=== PATIENT | male | born 1970 | race Caucasian/White ===

== ENCOUNTER 2018-06-14 11:59 | Emergency (ER) | payer OTHER, MEDICAID, SELFPAY ==
[2018-06-14 12:00] VITALS: BP 127/82; PULSE 72; RESP 14; TEMP 36.2; O2SAT 97
[2018-06-14 13:06] LABS: Influenza A and B by PCR Rapid Negative (Negative)
--- NOTE | 2018-06-14 13:49 | ED_ITS ---
HPI - URI/Sore Throat General Chief Complaint: Upper Respiratory Symptoms Stated Complaint: STATES BRONCHITIS Time Seen by Provider: 06/14/18 13:47 Source: patient Mode of arrival: ambulatory Limitations: no limitations History of Present Illness HPI Narrative: Patient is a 47-year-old male here for evaluation of problems breathing and cough and fatigue and body aches for the past week. He states that he does have an albuterol inhaler at home which he had the last time he had the symptoms which was 6 months ago. He states that he has been using his albuterol without any improvement. Subjective fevers. Has a clear productive sputum. Related Data Previous Rx's Medication Instructions Recorded albuterol sulfate 1 puff INHALATION Q4-6H PRN #18 06/14/18 gram azithromycin See Label Instructions .ROUTE 06/14/18 .COMPLEX #6 tab Review of Systems Constitutional Denies fatigue and Denies fever(s) ENT Ears, Nose, Mouth, and Throat: Denies dizziness Cardiovascular Denies chest pain and Reports dyspnea Respiratory Reports change in phlegm color, Reports chest congestion, Reports cough, Reports excessive phlegm production, Reports dyspnea and Reports wheezing Gastrointestinal Gastrointestinal: Reports abdominal pain, Denies constipation, Denies diarrhea, Denies nausea and Denies vomiting Musculoskeletal Denies myalgias and Denies arthralgias Integumentary/Breasts Denies lesions and Denies rash Neurologic Denies dizziness Endocrine Denies fatigue Hematologic/Lymphatic Denies easy bleeding and Denies easy bruising Allergic/Immunologic Reports wheezing [facility] Medical History Healthy adult (Acute) Surgical History No pertinent past surgical history (Acute) Exam Initial Vital Signs Initial Vital Signs: Vital Signs Temperature 97.2 F L 06/14/18 12:00 Pulse Rate 72 06/14/18 12:00 Respiratory Rate 14 06/14/18 12:00 Blood Pressure 127/82 06/14/18 12:00 Pulse Oximetry 97 06/14/18 12:00 Const General: cooperative, healthy appearing, comfortable, well developed, well groomed and No acute distress Orientation: alert, awake and oriented x3 HENMT Head: normal to inspection and normocephalic Resp Effort & Inspection: normal respiratory effort, not labored, no respiratory distress and not tachypneic Auscultation: crackles, rhonchi and wheezes Cardio Rate: regular rate Rhythm: regular rhythm GI Inspection: non-distended Palpation: soft, No firm and No tender Skin Lesions: no lesions Rashes: no rashes Neuro General: alert, awake and oriented x3 Extrem General: normal to inspection and capillary refill normal Course Orders Ordered: ED Orders 06/14/18 12:30 FLU A and B [Influenza A and B by PCR Rapid] Stat 06/14/18 14:00 RT Consult Eval and Treat Now Discontinued Medications Albuterol (Ventolin) 2.5 mg INH NOW ONE Stop: 06/14/18 14:24 Last Admin: 06/14/18 14:20 Dose: 2.5 mg Albuterol/Ipratropium (Duoneb) 3 ml INH NOW ONE Stop: 06/14/18 14:00 Last Admin: 06/14/18 14:10 Dose: 3 ml Dexamethasone (Decadron) 10 mg PO NOW ONE Stop: 06/14/18 14:00 Last Admin: 06/14/18 14:22 Dose: 10 mg Vital Signs - 8 hr 06/14/18 12:00 06/14/18 14:44 Temperature 97.2 F L Pulse Rate 72 80 Respiratory Rate 14 17 Blood Pressure 127/82 Blood Pressure [Left Arm] 130/84 Pulse Oximetry 97 98 MDM - URI/Sore Throat Lab Data Lab Results 06/14/18 Range/Units 12:30 Influenza A & B (PCR) Negative (Negative) MDM Narrative Medical decision making narrative: Patient with diffuse bilateral wheezes and rhonchi. He did received 2 DuoNeb here in the emergency department which did improve his symptoms. He was also given oral Decadron here. Given his subjective fevers, body aches, productive cough and his abnormal breath sounds I will treat as a pneumonia. Will hold on chest x-ray. I will do this off of clinical findings. Also refill the patient's albuterol inhaler. He was given return precautions. He expressed understanding and agreement with plan. Discharge Plan Departure Patient Disposition: Home Clinical Impression: Pneumonia Instructions: DI for Pneumonia -- Adult Activity Restrictions/Additional Instructions: Increase your fluid intake. I would recommend that every 4 hr for the next 24 hr while your awake you use the albuterol inhaler with the AeroChamber. Return to the emergency department for any new or worsening symptoms. Call your primary doctor for a follow-up. Prescriptions: New azithromycin 250 mg tablet See Label Instructions .ROUTE .COMPLEX Qty: 6 RF: 0 albuterol sulfate 90 mcg/actuation HFA aerosol inhaler 1 puff INHALATION Q4-6H PRN (Reason: shortness of breath or wheezing) Qty: 18 RF: 0
[2018-06-14] MEDS: ALBUTEROL/IPRATROPIUM 3 ML AMPUL INH (14:10)
[2018-06-14] MEDS: ALBUTEROL 2.5 MG/3 ML NEB (ADULT) INH (14:20)
[2018-06-14] MEDS: DEXAMETHASONE 10 MG/ML VIAL PO (14:22)
[2018-06-14 14:44] VITALS: BP 130/84; PULSE 80; RESP 17; O2SAT 98
[2018-06-14 15:22] VITALS: BP 143/76; PULSE 89; RESP 19; TEMP 36.8; O2SAT 94
== END 2018-06-14 15:24 | disposition home or self-care (01) ==
PROVIDERS: Emergency Provider Emergency Medicine
DX: J18.9 Pneumonia, unspecified organism (principal)
CPT/HCPCS: 87400; 94640; 99282; 99283; J1100; J7613

== ENCOUNTER 2018-07-01 19:26 | Emergency (ER) | payer OTHER, MEDICAID, SELFPAY ==
[2018-07-01 19:36] VITALS: BP 136/74; PULSE 83; RESP 25; TEMP 36.4; O2SAT 97
[2018-07-01 19:38] VITALS: O2SAT 97
--- NOTE | 2018-07-01 19:40 | ED_ITS ---
HPI - SOB/Dyspnea General Chief Complaint: Shortness of Breath/Dyspnea Stated Complaint: STATES HAS PNEUMONIA Time Seen by Provider: 07/01/18 19:40 Source: patient Mode of arrival: ambulatory Limitations: no limitations History of Present Illness The patient has been ill for 3 weeks. He describes cough, dyspnea and fatigue. He has had no fever or chills. He does feel weak. He has been seen on multiple occasions. He was initially treated with Zithromax, he is now on Levaquin. He has been on a course of prednisone. He is currently taking albuterol. Despite these efforts for multiple vitals, he presents with shortness of breath, wheezing, mild left-sided chest pain, but no fever. The cough is generally nonproductive. Was a cigarette smoker, less than 1/2 pack per day. He still chews tobacco. He quit smoking in association with his current illness. He has a history of childhood asthma. The asthma resolved at a young age. He has not had to deal with asthma as an adult. He has no leg pain, he has no hemoptysis. He has no orthopnea. He has no known cardiac history. Related Data Previous Rx's Medication Instructions Recorded albuterol sulfate 1 puff INHALATION Q4-6H PRN #18 06/14/18 gram azithromycin See Label Instructions .ROUTE 06/14/18 .COMPLEX #6 tab albuterol sulfate 2 inhalation INHALATION Q4H PRN #1 07/01/18 each prednisone 60 mg PO DAILY 5 Days #15 tab 07/01/18 Allergies Allergy/AdvReac Type Severity Reaction Status Date / Time No Known Drug Allergies Allergy Verified 07/01/18 19:36 Review of Systems Review of Systems All systems reviewed & are unremarkable except as noted in HPI and below Constitutional Denies chills, Denies fever(s), Denies headache(s), Reports lethargy and Reports weakness Eyes Denies change in vision, Denies eye discharge and Denies irritation ENT Ears, Nose, Mouth, and Throat: Denies change in voice, Denies dizziness, Denies headache(s), Denies neck pain and Denies sore throat Cardiovascular Reports chest pain (Left upper chest discomfort), Denies irregular heart rhythm , Denies lightheadedness, Denies palpitations, Reports dyspnea, Reports dyspnea on exertion and Denies orthopnea Respiratory Denies change in phlegm color, Denies excessive phlegm production, Reports pain with cough, Reports dyspnea, Reports dyspnea on exertion, Denies stridor and Reports wheezing Gastrointestinal Gastrointestinal: Denies abdominal pain, Denies change in bowel habits, Denies diarrhea, Denies nausea and Denies vomiting Genitourinary Denies dysuria Musculoskeletal Denies back pain, Denies myalgias and Denies neck pain Integumentary/Breasts Denies erythema and Denies rash Neurologic Denies confusion, Denies dizziness, Denies headache(s) and Reports weakness Psychiatric Denies confusion Endocrine Denies palpitations Hematologic/Lymphatic Denies easy bruising Allergic/Immunologic Reports wheezing [facility] Medical History Healthy adult (Acute) Surgical History No pertinent past surgical history (Acute) Social History Smoking Status: Former smoker Smokeless tobacco user: chewing tobacco Exam Initial Vital Signs Initial Vital Signs: Vital Signs Temperature 97.5 F L 07/01/18 19:36 Pulse Rate 83 07/01/18 19:36 Respiratory Rate 25 H 07/01/18 19:36 Blood Pressure 136/74 07/01/18 19:36 Pulse Oximetry 97 07/01/18 19:36 Const General: cooperative, healthy appearing and well developed Nutritional Appearance: well nourished Orientation: alert, awake, oriented x3 and not confused [facility] Head: normocephalic and atraumatic Ears: external ears normal and TM's normal bilaterally Face and sinus: sinuses nontender, face symmetric and no sinus tenderness Mouth: oral mucosae normal and moist mucous membranes Throat: posterior oropharynx normal Eyes General: appearance normal, both eyes and all related structures Eyelids: eyelids normal Conjunctivae: conjunctivae normal Sclera: sclerae normal Pupils: PERRL EOM: EOM intact bilaterally Neck Neck: full ROM and No JVD Chest Chest: normal inspection of the chest and No tenderness Resp Effort & Inspection: normal respiratory effort, able to speak in complete sentences, no stridor and not tachypneic Auscultation: no rales, rhonchi right lower and wheezes scattered wheezes Cardio Rate: regular rate Rhythm: regular rhythm Heart Sounds: no click, no gallops, no murmurs and no rubs Pulses: normal peripheral pulses GI Inspection: non-distended Palpation: soft, no hepatosplenomegaly, No guarding, No pulsatile mass and No tender Auscultation: normal bowel sounds Back/Spine/Pelvis Back: No CVA tenderness Skin General: no rashes or lesions noted Neuro General: alert, oriented x3, gait normal and no focal motor deficits Speech: speech normal Extrem General: full ROM, no clubbing, cyanosis or edema, no pedal edema and no calf tenderness Psych Appearance: well kempt Mental Status: mental status grossly normal Attitude: cooperative Thought Content: normal and suicidality Judgment: judgment good Course Orders Ordered: ED Orders 07/01/18 19:53 Consult to Respiratory Therapy Evaluate & Treat EKG-12 Lead Stat 07/01/18 19:54 XR chest 2V Stat 07/01/18 20:25 B Type Natriuretic Peptide Stat Basic Metabolic Panel Stat Complete Blood Count AUTO DIFF Stat D Dimer Stat Lactate (Lactic Acid) Stat Magnesium Stat Troponin & CK Cardiac Panel Stat 07/01/18 20:45 Blood Culture Stat Discontinued Medications Albuterol (Ventolin) 5 mg INH NOW ONE Stop: 07/01/18 19:54 Last Admin: 07/01/18 19:57 Dose: 5 mg Albuterol (Ventolin) 2.5 mg INH NOW ONE Stop: 07/01/18 21:15 Last Admin: 07/01/18 21:27 Dose: 2.5 mg Albuterol/Ipratropium (Duoneb) 3 ml INH NOW ONE Stop: 07/01/18 19:50 Last Admin: 07/01/18 19:52 Dose: 3 ml Albuterol/Ipratropium (Duoneb) 3 ml INH NOW ONE Stop: 07/01/18 19:53 Albuterol/Ipratropium (Duoneb) 3 ml INH NOW ONE Stop: 07/01/18 19:54 Methylprednisolone (Solu-Medrol 125 Mg Vial) 125 mg IV NOW ONE Stop: 07/01/18 19:53 Last Admin: 07/01/18 20:35 Dose: 125 mg Methylprednisolone (Solu-Medrol 125 Mg Vial) 125 mg IV NOW ONE Stop: 07/01/18 19:54 Last Admin: 07/01/18 20:14 Dose: Not Given Vital Signs - 8 hr 07/01/18 19:36 07/01/18 19:38 07/01/18 19:55 Temperature 97.5 F L Pulse Rate 83 Respiratory Rate 25 H Blood Pressure 136/74 Pulse Oximetry 97 97 100 07/01/18 21:27 07/01/18 21:40 Temperature Pulse Rate 87 85 Respiratory Rate 16 Blood Pressure Pulse Oximetry 97 100 MDM - SOB/Dyspnea Differential Diagnosis Likely acute exacerbation of chronic obstructive airways disease, congestive heart failure, community acquired pneumonia, asthma with exacerbation, pulmonary embolism and other ([place]) Medical Records Attestation: I reviewed the patient's medical records. Lab Data Attestation: I reviewed the patient's lab results. Result diagrams: 07/01/18 20:25 07/01/18 20:25 Lab Results 07/01/18 07/01/18 07/01/18 Range/Units 20:25 20:25 20:25 WBC 8.6 (4.5-11.0) X10^3/uL RBC 5.07 (4.5-5.9) X10^6/uL Hgb 15.1 (13.5-17.5) g/dL Hct 45.1 (41-53) % MCV 88.9 (80-100) fL MCH 29.8 (26-34) PG MCHC 33.5 (30-36) % RDW 13.3 (11.6-14.8) % Plt Count 204 (150-400) X10^3/uL Neut % (Auto) 40.6 L (50-75) % Lymph % (Auto) 45.9 H (25-40) % [place] % (Auto) 7.8 (3-14) % Eos % (Auto) 5.0 H (2-4) % Baso % (Auto) 0.7 (0-2) % Neut # (Auto) 3500 (6870-0446) /uL D-Dimer < 200 (<230) ng/mL Sodium 140 (137-145) mmol/L Potassium 3.7 (3.4-5.1) mmol/L Chloride 107 (98-107) mmol/L Carbon Dioxide 21 L (22-32) mmol/L BUN 15 (9-20) mg/dL Creatinine 0.90 (0.66-1.25) mg/dL Estimated GFR > 60.0 (>60) mL/min BUN/Creatinine Ratio 16.7 (6-22) Glucose 151 H (70-100) mg/dL Lactate (0.7-2.1) mmol/L Calcium 8.6 (8.4-10.2) mg/dL Magnesium 1.9 (1.6-2.3) mg/dL Total Creatine Kinase 293 H (55-170) U/L CK-MB (CK-2) 3.67 H (<2.37) ng/mL CK-MB (CK-2) Rel Index 1.3 L (1.5-5.0) % Troponin I < 0.012 (0.01-0.034) ng/mL B-Natriuretic Peptide < 29.4 (<100) 07/01/18 Range/Units 20:25 WBC (4.5-11.0) X10^3/uL RBC (4.5-5.9) X10^6/uL Hgb (13.5-17.5) g/dL Hct (41-53) % MCV (80-100) fL MCH (26-34) PG MCHC (30-36) % RDW (11.6-14.8) % Plt Count (150-400) X10^3/uL Neut % (Auto) (50-75) % Lymph % (Auto) (25-40) % [place] % (Auto) (3-14) % Eos % (Auto) (2-4) % Baso % (Auto) (0-2) % Neut # (Auto) (6008-0590) /uL D-Dimer (<230) ng/mL Sodium (137-145) mmol/L Potassium (3.4-5.1) mmol/L Chloride (98-107) mmol/L Carbon Dioxide (22-32) mmol/L BUN (9-20) mg/dL Creatinine (0.66-1.25) mg/dL Estimated GFR (>60) mL/min BUN/Creatinine Ratio (6-22) Glucose (70-100) mg/dL Lactate 2.1 (0.7-2.1) mmol/L Calcium (8.4-10.2) mg/dL Magnesium (1.6-2.3) mg/dL Total Creatine Kinase (55-170) U/L CK-MB (CK-2) (<2.37) ng/mL CK-MB (CK-2) Rel Index (1.5-5.0) % Troponin I (0.01-0.034) ng/mL B-Natriuretic Peptide (<100) Imaging Data Chest x-ray: Radiologist's impression: Normal ECG Data Attestation: I personally reviewed and interpreted this ECG as follows: MDM Narrative Medical decision making narrative: The patient presented with diffuse wheezing. He improved with the neb treatments and IV steroids. He continues to have right lower lobe bronchi. Chest XR is clear. He has been on Zithromax and is currently on Levaquin. It is possible that he has resolving pneumonia or partially treated pneumonia. He needs to continue the antibiotics. He does have a history of asthma as a child, he had significant wheezing upon arrival. I have put him back on steroids. I recommended follow up with his PCM with consideration of a steroid inhaler and formal pulmonary testing. Discharge Plan Departure Patient Disposition: Home Clinical Impression: Bronchitis with asthma, acute Discharge Date/Time: 07/01/18 22:22 Interventions: ED Discharge Assessment Last Done: 07/01/18 22:23 Instructions: Asthma -- Adult Activity Restrictions/Additional Instructions: Your lung exam is suggestive of asthma or COPD. There is no evidence of heart attack, congestive heart failure, or blood clots in your lungs.The chest x-ray does not reveal a significant pneumonia or other abnormality. I do think you do have infection, thus you should continue the antibiotics. Finish the antibiotic, Levaquin. Continue taking Albuterol, 2 puffs every 4 hr as needed. Prednisone 60 mg daily for 5 days. Follow-up with Dr. Magallanes next week. Your currently on oral steroids, discuss possibly going on a steroid inhaler with Dr. Magallanes. I would also recommend consideration of a pulmonology consult. Pulmonary function test would be useful , bronchoscopy may be useful if symptoms persist. Prescriptions: New prednisone 20 mg tablet 60 mg PO DAILY 5 Days Qty: 15 RF: 0 albuterol sulfate 90 mcg/actuation aerosol powdr breath activated 2 inhalation INHALATION Q4H PRN (Reason: shortness of breath or wheezing) Qty : 1 RF: 1 No Action azithromycin 250 mg tablet See Label Instructions .ROUTE .COMPLEX Qty: 6 RF: 0 albuterol sulfate 90 mcg/actuation HFA aerosol inhaler 1 puff INHALATION Q4-6H PRN (Reason: shortness of breath or wheezing) Qty: 18 RF: 0
[2018-07-01] MEDS: ALBUTEROL/IPRATROPIUM 3 ML AMPUL INH (19:52)
--- NOTE | 2018-07-01 19:54 | DI.RAD.S_ITS ---
PROCEDURE: XR CHEST 2V INDICATIONS: Cough. Wheezing TECHNIQUE: 2 views of the chest were acquired. COMPARISON: None. FINDINGS: Surgical changes and devices: None. Lungs and pleura: No pleural effusions or pneumothorax. Lungs are clear. Mediastinum: Mediastinal contours are normal. Heart size is normal. Bones and chest wall: No suspicious bony abnormalities. Soft tissues appear unremarkable. Contour irregularity consistent with an old healed fracture identified along the posterolateral aspect of the right seventh rib. There are mild multilevel degenerative changes of the thoracic spine. IMPRESSION: No acute cardiopulmonary disease. Dictated by: Dipesh Hinton M.D. on 07/01/2018 at 20:43 Approved by: Dipesh Hinton M.D. on 07/01/2018 at 20:45
[2018-07-01 19:55] VITALS: O2SAT 100
[2018-07-01] MEDS: ALBUTEROL 2.5 MG/3 ML NEB (ADULT) 5 MG INH (19:57)
[2018-07-01] MEDS: methylPREDNISolone 125 MG/2 ML VIAL IV (20:35)
[2018-07-01 20:38] LABS: Add Manual Diff / Slide Review NO; Basophils Percent Auto 0.7 % (0-2); Hematocrit 45.1 % (41-53); Hemoglobin 15.1 g/dL (13.5-17.5); Lymphocytes Percent Auto 45.9 % (25-40); Mean Corpuscular HGB Conc 33.5 % (30-36); Mean Corpuscular Hemoglobin 29.8 PG (26-34); Mean Corpuscular Volume 88.9 fL (80-100); Monocytes Percent Auto 7.8 % (3-14); Neutrophils Absolute Auto 3500 /uL (3000-5900); Neutrophils Percent Auto 40.6 % (50-75); Platelet Count 204 X10^3/uL (150-400); Red Blood Cell Count 5.07 X10^6/uL (4.5-5.9); Red Cell Distribution Width 13.3 % (11.6-14.8); White Blood Cell Count 8.6 X10^3/uL (4.5-11.0)
[2018-07-01 21:02] LABS: B Type Natriuretic Peptide < 29.4 (<100)
[2018-07-01 21:03] LABS: D Dimer < 200 ng/mL (<230)
[2018-07-01 21:04] LABS: BUN Creatinine Ratio 16.7 (6-22); Blood Urea Nitrogen 15 mg/dL (9-20); Calcium 8.6 mg/dL (8.4-10.2); Carbon Dioxide 21 mmol/L (22-32); Chloride 107 mmol/L (98-107); Creatine Kinase 293 U/L (55-170); Estimated Glomerular Filt Rate > 60.0 mL/min (>60); Glucose 151 mg/dL (70-100); HEMOLYSIS 22 (0-50); Lactate (Lactic Acid) 2.1 mmol/L (0.7-2.1); Magnesium 1.9 mg/dL (1.6-2.3); Potassium 3.7 mmol/L (3.4-5.1); Sodium 140 mmol/L (137-145)
[2018-07-01 21:18] LABS: CKMB % Relative Index 1.3 % (1.5-5.0); Creatine Kinase MB 3.67 ng/mL (<2.37); Troponin I < 0.012 ng/mL (0.01-0.034)
[2018-07-01 21:27] VITALS: PULSE 87; RESP 16; O2SAT 97
[2018-07-01] MEDS: ALBUTEROL 2.5 MG/3 ML NEB (ADULT) INH (21:27)
[2018-07-01 21:40] VITALS: PULSE 85; O2SAT 100
== END 2018-07-01 22:22 | disposition home or self-care (01) ==
PROVIDERS: Emergency Provider Emergency Medicine
DX: J45.901 Unspecified asthma with (acute) exacerbation (principal)
CPT/HCPCS: 36591; 71046; 80048; 82550; 82553; 83605; 83735; 83880; 84484; 85025; 85379; 87040; 93005; 94640; 96374; 99282; 99285; J2930; J7613

== ENCOUNTER 2019-06-12 20:14 | Emergency (ER) | payer OTHER, MEDICAID, SELFPAY | END 2019-06-12 21:07 | disposition left against medical advice (07) | PROVIDERS: Emergency Provider Emergency Medicine | DX: R06.02 Shortness of breath (principal) | CPT/HCPCS: 99281 ==

== ENCOUNTER → 2019-11-19 10:25 | Outpatient (CLI) | payer OTHER, MEDICAID, SELFPAY ==
[2019-11-19 12:26] LABS: Influenza A - CEPHEID Flu A NEGATIVE (NEGATIVE); Influenza B - CEPHEID Flu B NEGATIVE (NEGATIVE)
[2019-11-21 19:38] LABS: COVID19 Sendout Not Detected (Not Detected)
== END ==
PROVIDERS: Visit Provider Family Medicine
DX: R05 Cough (principal); R06.02 Shortness of breath
CPT/HCPCS: 87502; 87635

== ENCOUNTER 2020-08-01 07:43 | Emergency (ER) | payer OTHER, MEDICAID, SELFPAY ==
--- NOTE | 2020-08-01 07:48 | DI.RAD.S_ITS ---
PROCEDURE: XR CHEST 1V INDICATIONS: cough, concern for covid, fatigue TECHNIQUE: One view of the chest was acquired. COMPARISON: [facility], CR, XR CHEST 2V, 07/01/2018, 20:06. FINDINGS: Surgical changes and devices: None. Lungs and pleura: Lungs are clear. No pleural effusions or pneumothorax. Mediastinum: Mediastinal contours appear normal. Heart size is normal. Bones and chest wall: No suspicious bony lesions. Overlying soft tissues appear unremarkable. IMPRESSION: No acute process. Dictated by: Stewart Bhandari M.D. on 08/01/2020 at 9:01 Approved by: Stewart Bhandari M.D. on 08/01/2020 at 9:02
[2020-08-01 07:54] VITALS: BP 161/71; PULSE 74; RESP 20; TEMP 36.3; O2SAT 98; BMI 33.9
--- NOTE | 2020-08-01 07:58 | ED_ITS ---
HPI - URI/Sore Throat General Chief Complaint: Shortness of Breath/Dyspnea Stated Complaint: body aches/cough/fatigue x2 days Time Seen by Provider: 08/01/20 07:48 Source: patient Mode of arrival: Ambulatory Limitations: no limitations History of Present Illness HPI Narrative: This is a 49-year-old male who comes to emergency department with concern for COVID infection. Patient states he had an indirect contact when he went to obtain payment from a customer who had positive COVID testing. 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 Patient states for the last 24-48 hours he has had body aches, cough and fatigue like sensation. He has not had fever but has felt chilled. He states that has not had any chest pain or pressure. He does not really feel short of breath but like he needs to take a big breath. Patient has had a little bit upper respiratory congestion. He states he has had a cough. He denies any nausea, no vomiting. He has had several loose stools today. Patient denies any frequency, dysuria, hematuria, urgency or difficulty with urination. He has had some mild back discomfort particularly on the left. He noticed his hands feel little tighter today. Patient states that he does smoke about half pack daily, he has had multiple episodes of pneumonia in the past. 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 He denies any tingling, no no other neurologic symptoms. Related Data Home Medications Medication Instructions Recorded Confirmed bupropion HCl 150 mg 24 hr tablet, 150 mg PO QAM 11/19/19 11/19/19 extended release lorazepam 1 mg tablet 1 mg PO DAILY PRN 11/19/19 11/19/19 zolpidem 5 mg tablet 5 mg PO BEDTIME PRN 11/19/19 11/19/19 Previous Rx's Medication Instructions Recorded albuterol sulfate 90 mcg/actuation 2 puff INHALATION Q6H PRN #6.7 gram 11/19/19 aerosol inhaler Allergies Allergy/AdvReac Type Severity Reaction Status Date / Time No Known Drug Allergies Allergy Verified 11/19/19 10:05 Review of Systems Review of Systems ROS Unobtainable: All systems reviewed & are unremarkable except as noted in HPI and below Patient History Medical History (Updated 08/01/20 @ 08:20 by Atiya Smyth DO) Healthy adult Surgical History No pertinent past surgical history Social History Smoking Status: Current every day smoker Smokeless tobacco user: chewing tobacco Smoking Status: Current every day smoker alcohol intake frequency: 0-2 drinks per day Substance Use Type: does not use Exam Narrative Exam Narrative: GEN: well nourished, well appearing male, alert and oriented x 3, patient appears to be in mild distress. HEENT: Atraumatic, pupils are equal round reactive to light, extraocular movements are intact, nares are clear. HEART: Regular rate and rhythm without murmur, clicks, rubs. LUNGS:Lungs clear to auscultation, no wheezes, rales, crackles, chest moves symmetrically. ABD:bowel sounds normal, soft, non-tender, no guarding, rebound, rigidity, no masses noted, no hepatosplenomegaly : mild left CVA tenderness BACK: No cervical, thoracic or lumbar vertebral point tenderness. Patient does have muscle tightness greater left compared to right in the quadratus lumborum and the latissimus region. Patient has normal range of motion. Patient's gait is normal. Muscle strength is 5/5 in lower extremities. MSCL: full range of motion, normal gait NEURO:CN 2-12 intact, sensation normal Initial Vital Signs Initial Vital Signs: Vital Signs Temperature 97.4 F L 08/01/20 07:54 Pulse Rate 74 08/01/20 07:54 Respiratory Rate 20 08/01/20 07:54 Blood Pressure 161/71 H 08/01/20 07:54 Pulse Oximetry 98 08/01/20 07:54 Course Orders Ordered: ED Orders 08/01/20 07:48 XR chest 1V Stat 08/01/20 08:02 COVID19 Stat Vital Signs Vital signs: Vital Signs - 8 hr 08/01/20 07:54 Temperature 97.4 F L Pulse Rate 74 Respiratory Rate 20 Blood Pressure 161/71 H Pulse Oximetry 98 MDM - URI/Sore Throat Lab Data Labs: Lab Results 08/01/20 Range/Units 07:45 COVID-19 PCR Negative (Negative) Urine Dip Bedside Urine Glucose Negative Bedside Urine Bilirubin - Negative Bedside Urine Ketone - Negative Urine Specific Provencal 1.030 Bedside Urine Occult Blood - Negative Bedside Urine pH 6 Bedside Urine Protein - Negative Bedside Urine Urobilinogen - Negative Bedside Urine Nitrite - Negative Bedside Urine Leukocytes - Negative Esterase MDM Narrative Medical decision making narrative: Patient arrives with concern for covid which is negative. CXR shows no acute process. Patient have another viral upper respiratory infection. Recommended continued isolation, self-quarantine. poc urine is negative. Patient did complain of mild left flank pain which he describes as being worse when laying flat or not moving. He does have history of kidney stones, urine is negative for infection or hematuria. On exam patient does have muscle tightness on exam and suspect musculoskeletal cause. Discharge Plan Departure Patient Disposition: Home Clinical Impression: Cough Instructions: DI for Cough -- Adult Activity Restrictions/Additional Instructions: Your COVID swab is negative today. I would recommend continuing to self isolate if you are continuing to have symptoms. You may take ibuprofen and/or Tylenol as needed for pain and body aches. Follow-up if you are having any fevers, increasing shortness of breath, chest pain or pressure, lightheadedness or passing out, persistent vomiting, black or bloody stools, rapidly worsening back or flank pain or other new or concerning symptoms. Prescriptions: No Action bupropion HCl [Wellbutrin XL] 150 mg tablet extended release 24 hr 150 mg PO QAM RF: 0 lorazepam 1 mg tablet 1 mg PO DAILY PRNRF: 0 zolpidem [Ambien] 5 mg tablet 5 mg PO BEDTIME PRNRF: 0 albuterol sulfate 90 mcg/actuation HFA aerosol inhaler 2 puff INHALATION Q6H PRN (Reason: shortness of breath or wheezing) Qty: 6.7 RF: 0
[2020-08-01 08:06] LABS: COVID19 -Nasal RAPID Negative (Negative)
[2020-08-01 09:07] VITALS: BP 136/61; PULSE 86; RESP 16; O2SAT 98
== END 2020-08-01 09:11 | disposition home or self-care (01) ==
PROVIDERS: Emergency Provider Emergency Medicine
DX: R05 Cough (principal); R53.83 Other fatigue; R19.7 Diarrhea, unspecified
CPT/HCPCS: 71045; 81003; 87635; 99283

== ENCOUNTER 2021-04-14 09:10 | Emergency (ER) | payer OTHER, MEDICAID, SELFPAY ==
[2021-04-14 09:15] VITALS: BP 149/82; PULSE 95; RESP 18; TEMP 37.5; O2SAT 99
[2021-04-14 09:30] VITALS: PULSE 89; O2SAT 98
[2021-04-14 09:31] VITALS: BP 116/61; PULSE 91; O2SAT 97
--- NOTE | 2021-04-14 09:32 | DI.RAD.S_ITS ---
PROCEDURE: XR CHEST 1V INDICATIONS: Flu like symptoms TECHNIQUE: One view of the chest was acquired. COMPARISON: [facility], CR, XR CHEST 2V, 07/01/2018, 20:06. [facility], CR, XR CHEST 1V, 08/01/2020, 8:12. FINDINGS: Surgical changes and devices: None. Lungs and pleura: Lungs are clear. No pleural effusions or pneumothorax. Mediastinum: Mediastinal contours appear normal. Heart size is normal. Bones and chest wall: Old right 7th and 8th rib fracture. No suspicious bony lesions. Overlying soft tissues appear unremarkable. IMPRESSION: No acute cardiopulmonary disease. Dictated by: Travon Boykin M.D. on 04/14/2021 at 10:20 Approved by: Travon Boykin M.D. on 04/14/2021 at 10:20
[2021-04-14] MEDS: ACETAMINOPHEN 325 MG TABLET 975 MG PO (09:42)
[2021-04-14] MEDS: LORazepam 0.5 MG TABLET 1 MG PO (09:48)
--- NOTE | 2021-04-14 10:04 | ED.URI ---
HPI - URI/Sore Throat General Chief Complaint: Upper Respiratory Symptoms Stated Complaint: Covid symptoms/Cough/Feels like got hit by a truck Time Seen by Provider: 04/14/21 09:44 Source: patient Mode of arrival: Ambulatory Limitations: no limitations History of Present Illness HPI Narrative: Is a 50-year-old male who comes to emergency department with complaint of cough, myalgias and ?feels like he has got hit by a truck?. Patient states he has had a little bit of chest pain. He is afebrile here. He denies any nausea, no vomiting. No diarrhea constipation. He has not had any urinary symptoms. No rashes or skin changes. Patient states he just got over pneumonia about 2 months ago. He was a smoker until about 2 months ago. 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 He states he takes several medications for anxiety and mental health. He did not see any other medical issues. He does use albuterol as needed. He also has a CPAP at home. 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 He denies any allergies to medications. Patient did have his 1st dose of COVID vaccine 2 weeks ago. Related Data Home Medications Medication Instructions Recorded Confirmed bupropion HCl 150 mg 24 hr tablet, 150 mg PO QAM 11/19/19 04/14/21 extended release (Wellbutrin XL) lorazepam 1 mg tablet 1 mg PO DAILY PRN 11/19/19 04/14/21 zolpidem 5 mg tablet (Ambien) 5 mg PO BEDTIME PRN 11/19/19 04/14/21 Previous Rx's Medication Instructions Recorded albuterol sulfate 90 mcg/actuation 2 puff INHALATION Q6H PRN #6.7 gram 11/19/19 aerosol inhaler Allergies Allergy/AdvReac Type Severity Reaction Status Date / Time No Known Drug Allergies Allergy Verified 04/14/21 09:34 Review of Systems Review of Systems ROS Unobtainable: All systems reviewed & are unremarkable except as noted in HPI and below Patient History Medical History Healthy adult Surgical History No pertinent past surgical history Social History Smoking Status: Former smoker Smokeless tobacco user: chewing tobacco Smoking Status: Former smoker alcohol intake frequency: 0-2 drinks per day Substance Use Type: does not use Exam Narrative Exam Narrative: GENERAL: Alert and oriented x three, anxious appearing male in mild distress. HEENT: Head normocephalic, atraumatic, EOMI, pupils reactive, face symmetric, moist mucous membranes NECK: Supple, full range of motion CARDIOVASCULAR: Regular rate and rhythm without murmurs, rubs or gallops. RESPIRATORY: Breath sounds equal bilaterally, no wheezes rales or rhonchi. No tachypnea accessory muscle use. Speaks in full sentences. ABDOMEN: Soft, nontender. Normoactive bowel sounds all 4 quadrants. No guarding or rebound, rigidity, no mass : No CVA tenderness EXTREMITIES: Normal range of motion, no clubbing or edema. Neurovascularly intact NEUROLOGICAL: Cranial nerves II through XII grossly intact. Moving all extremities SKIN: Warm, dry, no petechiae, no rashes or lesions. Initial Vital Signs Initial Vital Signs: Vital Signs Temperature 99.5 F 04/14/21 09:15 Pulse Rate 95 H 04/14/21 09:15 Respiratory Rate 18 04/14/21 09:15 Blood Pressure 149/82 H 04/14/21 09:15 Pulse Oximetry 99 04/14/21 09:15 Course Orders Ordered: Discontinued Medications Acetaminophen (Acetaminophen 325 Mg Tablet) 975 mg PO NOW ONE Stop: 04/14/21 09:39 Last Admin: 04/14/21 09:42 Dose: 975 mg Documented by: JONATHAN Lorazepam (Lorazepam 0.5 Mg Tablet) 1 mg PO NOW ONE Stop: 04/14/21 09:45 Last Admin: 04/14/21 09:48 Dose: 1 mg Documented by: JONATHAN Vital Signs Vital signs: Vital Signs - 8 hr 04/14/21 09:15 Temperature 99.5 F Pulse Rate 95 H Respiratory Rate 18 Blood Pressure 149/82 H Pulse Oximetry 99 MDM - URI/Sore Throat Lab Data Labs: Lab Results 04/14/21 Range/Units 09:40 SARS-CoV-2 (PCR) Positive H (Negative) Imaging Data Chest x-ray: Radiologist's Impression: [address] [id number] ReportSigned Patient: Forrest Obrien [facility]#: [id number]: 1970Acct:[id number]/Sex: 50 / MDate of Service: 04/14/21Loc: EDAccession Number: [id number] Procedure: XR chest 1V Ordering Provider: Atiya Smyth D.O. PROCEDURE: XR CHEST 1V INDICATIONS: Flu like symptoms TECHNIQUE: One view of the chest was acquired. COMPARISON: [facility], CR, XR CHEST 2V, 07/01/2018, 20:06. [facility], CR, XR CHEST 1V, 08/01/2020, 8:12. FINDINGS: Surgical changes and devices: None. Lungs and pleura: Lungs are clear. No pleural effusions or pneumothorax. Mediastinum: Mediastinal contours appear normal. Heart size is normal. Bones and chest wall: Old right 7th and 8th rib fracture. No suspicious bony lesions. Overlying soft tissues appear unremarkable. IMPRESSION: No acute cardiopulmonary disease. Dictated by: Travon Boykin M.D. on 04/14/2021 at 10:20 Approved by: Travon Boykin M.D. on 04/14/2021 at 10:20 [facility] Narrative Medical decision making narrative: This is a 50-year-old male with COVID symptoms he tested positive. Chest x-ray shows no acute changes. Patient's heart rates 95 but otherwise normal vitals. Patient is quite anxious about his current situation. He did have his 1st COVID vaccination 2 weeks ago. He is a former smoker as of 2 months ago. And uses CPAP daily. Discharge Plan Departure Patient Disposition: Home Clinical Impression: COVID-19 virus infection Instructions: DI for COVID-19 (Suspected or Confirmed ) Activity Restrictions/Additional Instructions: *You have been diagnosed with COVID infection. At this time your chest x-ray is negative for pneumonia. If you wish you may obtain a pulse oximeter for use at home to monitor. Please return to the ER if your pulse oximeter shows an O2 saturation less than 92%. You can take [id number] cough medication if you find this helpful. Continue your daily 81mg aspirin. There are some recommendations about taking Vitamin D and Zinc daily. Continue your albuterol as needed. *What to do: * per recommendations from the CDC and the [facility] Department of Health * stay home except to get medical care. Restrict activities outside your home, except for getting medical care. Do not go to work, school, or public areas. Avoid using public transportation, ride sharing, or taxis. * separate yourself from other people in your home. * call ahead before visiting your doctor * Wear a face mask * Cover your coughs and sneezes * Clean your hands often * Avoid sharing household items * Clean all high-touch services every day * Monitor your symptoms and seek prompt medical attention if your illness is worsening, particularly with difficulty in breathing. Discussed continuing home isolation * for individuals with symptoms who are confirmed or suspected cases of COVID-19 and are directed to care for themselves at home, discontinue home isolation under the following conditions: 1. At least 72 hours have passed since recovery, defined as resolution of fever without the use of fever reducing medications, and improvement in respiratory symptoms (cough, shortness of breath) AND, 2. At least 7 days have passed since symptoms 1st appeared Individuals with laboratory confirmed COVID-19 who have not had any symptoms may discontinue home isolation when at least 7 days have passed since the date of their 1st COVID-19 diagnostic test and have had no subsequent illness Prescriptions: No Action bupropion HCl [Wellbutrin XL] 150 mg tablet extended release 24 hr 150 mg PO QAM RF: 0 lorazepam 1 mg tablet 1 mg PO DAILY PRN (Reason: Anxiety) RF: 0 zolpidem [Ambien] 5 mg tablet 5 mg PO BEDTIME PRN (Reason: Insomnia) RF: 0 albuterol sulfate 90 mcg/actuation HFA aerosol inhaler 2 puff INHALATION Q6H PRN (Reason: shortness of breath or wheezing) Qty: 6.7 RF: 0
[2021-04-14 10:06] LABS: COVID19 -Nasal RAPID POSITIVE (Negative)
[2021-04-14 10:19] VITALS: O2SAT 98
[2021-04-14 10:20] VITALS: BP 151/95; O2SAT 98
== END 2021-04-14 11:10 | disposition home or self-care (01) ==
PROVIDERS: Emergency Provider Emergency Medicine
DX: U07.1 COVID-19 (principal)
CPT/HCPCS: 71045; 87635; 99283; C9803

== ENCOUNTER 2022-11-13 09:08 | Emergency (ER) | payer OTHER, MEDICAID, SELFPAY ==
--- NOTE | 2022-11-13 09:18 | ED_ITS ---
HPI - General Adult General Chief complaint: Skin/Abscess/Foreign Body Stated complaint: infected finger Time Seen by Provider: 11/13/22 09:11 Source: patient Mode of arrival: Ambulatory Limitations: no limitations History of Present Illness HPI narrative: Patient is a 51-year-old male who is here for evaluation of an infection of his right middle finger. He states that has been going on and worsening for the pa st 3 days. It started as a small cut on the palmar side of his middle finger in between his D IP and PIP joint. It has worsened since then. He states that it hurts to bend his finger. Does have swelling. Has not tried anything for the symptoms prior to arrival. 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 Related Data Home Medications Medication Instructions Recorded Confirmed bupropion HCl 150 mg 24 hr tablet, 150 mg PO QAM 11/19/19 04/14/21 extended release (Wellbutrin XL) lorazepam 1 mg tablet 1 mg PO DAILY PRN Anxiety 11/19/19 04/14/21 zolpidem 5 mg tablet (Ambien) 5 mg PO BEDTIME PRN Insomnia 11/19/19 04/14/21 Previous Rx's Medication Instructions Recorded albuterol sulfate 90 mcg/actuation 2 puff inhalation Q6H PRN 11/19/19 aerosol inhaler shortness of breath or wheezing #6.7 grams doxycycline hyclate 100 mg tablet 100 mg PO BID 7 days #14 tabs 11/13/22 tramadol 50 mg tablet 50 mg PO Q6H PRN pain #10 tabs 11/13/22 Allergies Allergy/AdvReac Type Severity Reaction Status Date / Time No Known Drug Allergies Allergy Verified 04/14/21 09:34 Review of Systems Musculoskeletal Musculoskeletal: Reports system reviewed and no additional complaints, except as documented Integumentary/Breasts Skin/Breast: Reports system reviewed and no additional complaints, except as documented Neurologic Neurologic: Reports system reviewed and no additional complaints, except as documented Patient History Medical History (Updated 11/13/22 @ 10:16 by Mason Mcfarland DO) Healthy adult Surgical History No pertinent past surgical history Social History Smoking Status: Former smoker Smokeless tobacco user: chewing tobacco Smoking Status: Former smoker alcohol intake frequency: 0-2 drinks per day Substance Use Type: does not use Exam Initial Vital Signs Initial Vital Signs: Vital Signs Temperature 98.1 F 11/13/22 09:22 Pulse Rate 78 11/13/22 09:22 Respiratory Rate 18 11/13/22 09:22 Blood Pressure 136/78 11/13/22 09:22 Pulse Oximetry 100 11/13/22 09:22 Oxygen Delivery Method Room Air 11/13/22 09:22 Cardio Pulses: radial pulses present on the right Skin Other: Swelling and redness to the volar aspect of the right middle finger. Located between the MCP and the IP joint. Neuro Sensory Exam: no sensory deficits noted Extrem Other: Patient does have swelling particularly on the volar aspect of the right middle finger. It is held somewhat in flexion. He is tenderness over an area between the D IP and MCP joint. Procedures Abscess I/D I&D #1: Site: other (Finger) Side (if applicable): right Local Anesthetic: lidocaine 1% Technique: incised with #11 blade Irrigation: No Packing used?: none Nerve Block Nerve Block 1: Time out performed: Yes Local Anesthetic: lidocaine 1% Amount of anesthesia used (mL): 4 Side: right Nerve Blocks: digital Procedure Successful: Yes Patient Tolerated Procedure: Well Complications: none Course Orders Ordered: Discontinued Medications Lidocaine HCl (Lidocaine 2% Inj Mdv 20ml) 20 ml INJ INTRA-OP ONE Stop: 11/13/22 09:21 Last Admin: 11/13/22 09:34 Dose: 20 ml Documented By: NORA Vital Signs Vital signs: Vital Signs - 8 hr 11/13/22 09:22 Temperature 98.1 F Pulse Rate 78 Respiratory Rate 18 Blood Pressure 136/78 Pulse Oximetry 100 Oxygen Delivery Method Room Air Medical Decision Making [facility] Narrative Medical decision making narrative: Clinical presentation is consistent with a cellulitis of his right middle finger. It is isolated between the MCP and the IP joint on the volar aspect. Bedside ultrasound did show a very small apparently abscess. Digital block was performed and this abscess was drained with a small amount of purulent material. I did consider flexor tenosynovitis given his presentation however he was able to flex at both the PIP and the IP joint but it was limited because of the swelling. He did not have swelling completely around his finger. I feel that his presentation today is more consistent with a cellulitis in that abscess which was drained and we will start him on antibiotics however he was given very strict return precautions that if the redness starts to worsen or if he has more pain or more swelling that he does need to return to the emergency department and at that time would recommend evaluation by Orthopedics for flexor tenosynovitis. Patient is tolerating oral intake. He expressed understanding and agreement with plan. Discharge Plan Departure Patient Disposition: Home Clinical Impression: Cellulitis Instructions: DI for Cellulitis -- Adult Activity Restrictions/Additional Instructions: [facility] your [facility]. I recommend that you take them as directed. You can wash your hands like normal. Expect some drainage from the area. Like we discussed if your symptoms start to worsen over the next 24-48 hours you do need to return to the emergency department for further evaluation. Prescriptions: New doxycycline hyclate 100 mg tablet 100 mg PO BID 7 Days Qty: 14 0RF tramadol 50 mg tablet 50 mg PO Q6H PRN (Reason: pain) Qty: 10 0RF No Action bupropion HCl [Wellbutrin XL] 150 mg tablet extended release 24 hr 150 mg PO QAM lorazepam 1 mg tablet 1 mg PO DAILY PRN (Reason: Anxiety) zolpidem [Ambien] 5 mg tablet 5 mg PO BEDTIME PRN (Reason: Insomnia) albuterol sulfate 90 mcg/actuation HFA aerosol inhaler 2 puff INHALATION Q6H PRN (Reason: shortness of breath or wheezing) Qty: 6.7 0RF Referrals: Miscellaneous,Doctor, MD [Primary Care Provider] - Stand Alone Forms: Patient Portal/API
[2022-11-13 09:22] VITALS: BP 136/78; PULSE 78; RESP 18; TEMP 36.7; O2SAT 100; BMI 31.1
[2022-11-13] MEDS: LIDOCAINE 2% INJ MDV 20ML 20 ML INJ (09:34)
--- NOTE | 2022-11-13 09:36 | PC.NURSE ---
Pt states hx of MRSA. Physician aware.
== END 2022-11-13 10:23 | disposition home or self-care (01) ==
PROVIDERS: Emergency Provider Emergency Medicine
DX: L03.011 Cellulitis of right finger (principal)
CPT/HCPCS: 10060; 64450; 99282; 99283

== ENCOUNTER 2023-06-02 18:39 | Emergency (ER) | payer OTHER, MEDICAID, SELFPAY ==
[2023-06-02 18:41] VITALS: BMI 31.4
[2023-06-02 18:43] VITALS: BMI 33.9
--- NOTE | 2023-06-02 18:44 | ED.PSYCH ---
HPI - Psych <Jes Hickey DO - Last Filed: 06/14/23 06:57> General Chief Complaint: Psychiatric Symptoms Stated Complaint: SI Time Seen by Provider: 06/02/23 18:42 History of Present Illness HPI Narrative: Patient 52-year-old male presenting today by police with suicidal ideations. Apparently there was a picture he posted on Facebook page with a gun to his head with words of wanting to videotape his suicide. It has since been take down. He was resistant to come in with police he is currently calm. He is uncooperative does not want it admit to any suicidal ideations. He adamantly refuses to let us take blood he is not aggressive but not cooperative. 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 He currently living [place] a boat. Unclear if he is had mental health issues before. Related Data Home Medications Medication Instructions Recorded Confirmed bupropion HCl 150 mg 24 hr tablet, 150 mg PO QAM 11/19/19 04/14/21 extended release (Wellbutrin XL) lorazepam 1 mg tablet 1 mg PO DAILY PRN Anxiety 11/19/19 04/14/21 zolpidem 5 mg tablet (Ambien) 5 mg PO BEDTIME PRN Insomnia 11/19/19 04/14/21 Previous Rx's Medication Instructions Recorded albuterol sulfate 90 mcg/actuation 2 puff inhalation Q6H PRN 11/19/19 aerosol inhaler shortness of breath or wheezing #6.7 grams tramadol 50 mg tablet 50 mg PO Q6H PRN pain #10 tabs 11/13/22 Allergies Allergy/AdvReac Type Severity Reaction Status Date / Time No Known Drug Allergies Allergy Verified 04/14/21 09:34 Review of Systems <Jes Hickey DO - Last Filed: 06/14/23 06:57> Review of Systems ROS Unobtainable: All systems reviewed & are unremarkable except as noted in HPI and below Patient History <Jes Hickey DO - Last Filed: 06/14/23 06:57> Medical History (Updated 06/03/23 @ 17:28 by Mason Mcfarland DO) Healthy adult Surgical History No pertinent past surgical history Social History (Reviewed 06/02/23 @ 18:46 by CHAU Rolle Smoking Status: Former smoker Smokeless tobacco user: chewing tobacco Smoking Status: Former smoker alcohol intake frequency: 0-2 drinks per day Substance Use Type: does not use Exam <Jes Hickey DO - Last Filed: 06/14/23 06:57> Initial Vital Signs Initial Vital Signs: Vital Signs Respiratory Rate 18 06/02/23 19:34 GENERAL: 52-year-old male well-groomed CARDIOVASCULAR: peripheral pulses in tact, cap refill <2 sec RESPIRATORY: No respiratory distress, speaks in full sentences without difficulty EXTREMITIES: Normal range of motion, no clubbing or edema. Neurovascularly intact NEUROLOGICAL: Cranial nerves II through XII grossly intact. Normal gait and speech. SKIN: Warm, dry, no petechiae, no rashes or lesions. PSYCH: Uncooperative, nonaggressive <Mason Mcfarland DO - Last Filed: 06/03/23 17:28> Initial Vital Signs Initial Vital Signs: Vital Signs Respiratory Rate 18 06/02/23 19:34 Procedures <Mason Mcfarland DO - Last Filed: 06/03/23 17:28> Procedural Sedation Consent signed: No Indication: other (Medical clearance) Ketamine dose (mg): 300 ED Sedation Level: Moderate (Concious) Patient Tolerated Procedure: Well and No complications Course <Jes Hickey DO - Last Filed: 06/14/23 06:57> Orders Ordered: Discontinued Medications Diphenhydramine HCl (Diphenhydramine 50 Mg/Ml Vial) 50 mg IM NOW ONE Stop: 06/02/23 18:43 Last Admin: 06/02/23 19:05 Dose: 50 mg Documented By: NL Diphenhydramine HCl (Diphenhydramine 50 Mg/Ml Vial) 50 mg IM NOW ONE Stop: 06/03/23 13:59 Last Admin: 06/03/23 15:02 Dose: Not Given Documented By: SPF Haloperidol (Haloperidol 5 Mg/Ml Vial) 10 mg IM NOW ONE Stop: 06/02/23 20:15 Last Admin: 06/02/23 22:27 Dose: 10 mg Documented By: RL Haloperidol (Haloperidol 5 Mg/Ml Vial) 5 mg IM NOW ONE Stop: 06/03/23 13:59 Last Admin: 06/03/23 15:02 Dose: Not Given Documented By: SPF Ketamine HCl (Ketamine 500 Mg/5 Ml Inj) 300 mg IM NOW ONE Stop: 06/03/23 00:04 Last Admin: 06/03/23 07:37 Dose: 300 mg Documented By: BANDAR Lorazepam (Lorazepam 2 Mg/Ml Inj) 2 mg IM NOW ONE Stop: 06/02/23 18:43 Last Admin: 06/02/23 19:05 Dose: 2 mg Documented By: AMANUEL Lorazepam (Lorazepam 2 Mg/Ml Inj) 2 mg IM NOW ONE Stop: 06/03/23 13:59 Last Admin: 06/03/23 15:02 Dose: Not Given Documented By: BANDAR Lorazepam (Lorazepam 0.5 Mg Tablet) 1 mg PO NOW ONE Stop: 06/03/23 14:13 Last Admin: 06/03/23 14:16 Dose: 1 mg Documented By: BANDAR Lorazepam (Lorazepam 0.5 Mg Tablet) 1 mg PO NOW ONE Stop: 06/03/23 17:17 Last Admin: 06/03/23 17:22 Dose: 1 mg Documented By: BANDAR Ondansetron HCl (Ondansetron 4 Mg Odt) 4 mg SL NOW ONE Stop: 06/03/23 08:14 Last Admin: 06/03/23 08:10 Dose: 4 mg Documented By: BANDAR Vital Signs Vital signs: Vital Signs - 8 hr 06/03/23 09:30 06/03/23 09:35 06/03/23 09:40 Temperature Pulse Rate 81 88 67 Respiratory Rate 12 12 12 Blood Pressure 138/67 132/70 119/60 Pulse Oximetry 94 95 95 Oxygen Delivery Method Room Air Room Air Room Air 06/03/23 09:45 06/03/23 09:50 06/03/23 10:17 Temperature Pulse Rate 79 81 67 Respiratory Rate 14 12 13 Blood Pressure 119/67 124/65 166/86 H Pulse Oximetry 94 94 95 Oxygen Delivery Method Room Air Room Air Room Air 06/03/23 10:21 06/03/23 10:26 06/03/23 10:32 Temperature Pulse Rate 64 65 83 Respiratory Rate 13 12 14 Blood Pressure 165/93 H 152/85 H 147/87 H Pulse Oximetry 96 95 95 Oxygen Delivery Method Room Air Room Air Room Air 06/03/23 10:57 06/03/23 11:17 06/03/23 11:30 Temperature Pulse Rate 73 97 H 86 Respiratory Rate 13 14 12 Blood Pressure 145/72 H 164/85 H Pulse Oximetry 95 98 Oxygen Delivery Method Room Air Room Air 06/03/23 11:46 06/03/23 12:00 06/03/23 12:30 Temperature 97.8 F Pulse Rate 94 H 77 86 Respiratory Rate 12 15 13 Blood Pressure 137/60 158/65 H Pulse Oximetry 98 Oxygen Delivery Method Room Air Room Air 06/03/23 12:45 06/03/23 13:00 06/03/23 13:15 Temperature Pulse Rate 83 93 H 70 Respiratory Rate 10 L 12 13 Blood Pressure Pulse Oximetry Oxygen Delivery Method Room Air Room Air Room Air <Mason Mcfarland, DO - Last Filed: 06/03/23 17:28> Orders Ordered: Discontinued Medications Diphenhydramine HCl (Diphenhydramine 50 Mg/Ml Vial) 50 mg IM NOW ONE Stop: 06/02/23 18:43 Last Admin: 06/02/23 19:05 Dose: 50 mg Documented By: NL Diphenhydramine HCl (Diphenhydramine 50 Mg/Ml Vial) 50 mg IM NOW ONE Stop: 06/03/23 13:59 Last Admin: 06/03/23 15:02 Dose: Not Given Documented By: SPF Haloperidol (Haloperidol 5 Mg/Ml Vial) 10 mg IM NOW ONE Stop: 06/02/23 20:15 Last Admin: 06/02/23 22:27 Dose: 10 mg Documented By: RL Haloperidol (Haloperidol 5 Mg/Ml Vial) 5 mg IM NOW ONE Stop: 06/03/23 13:59 Last Admin: 06/03/23 15:02 Dose: Not Given Documented By: SPF Ketamine HCl (Ketamine 500 Mg/5 Ml Inj) 300 mg IM NOW ONE Stop: 06/03/23 00:04 Last Admin: 06/03/23 07:37 Dose: 300 mg Documented By: SPF Lorazepam (Lorazepam 2 Mg/Ml Inj) 2 mg IM NOW ONE Stop: 06/02/23 18:43 Last Admin: 06/02/23 19:05 Dose: 2 mg Documented By: NL Lorazepam (Lorazepam 2 Mg/Ml Inj) 2 mg IM NOW ONE Stop: 06/03/23 13:59 Last Admin: 06/03/23 15:02 Dose: Not Given Documented By: SPF Lorazepam (Lorazepam 0.5 Mg Tablet) 1 mg PO NOW ONE Stop: 06/03/23 14:13 Last Admin: 06/03/23 14:16 Dose: 1 mg Documented By: BANDAR Lorazepam (Lorazepam 0.5 Mg Tablet) 1 mg PO NOW ONE Stop: 06/03/23 17:17 Last Admin: 06/03/23 17:22 Dose: 1 mg Documented By: BANDAR Ondansetron HCl (Ondansetron 4 Mg Odt) 4 mg SL NOW ONE Stop: 06/03/23 08:14 Last Admin: 06/03/23 08:10 Dose: 4 mg Documented By: BANDAR Vital Signs Vital signs: Vital Signs - 8 hr 06/03/23 09:30 06/03/23 09:35 06/03/23 09:40 Temperature Pulse Rate 81 88 67 Respiratory Rate 12 12 12 Blood Pressure 138/67 132/70 119/60 Pulse Oximetry 94 95 95 Oxygen Delivery Method Room Air Room Air Room Air 06/03/23 09:45 06/03/23 09:50 06/03/23 10:17 Temperature Pulse Rate 79 81 67 Respiratory Rate 14 12 13 Blood Pressure 119/67 124/65 166/86 H Pulse Oximetry 94 94 95 Oxygen Delivery Method Room Air Room Air Room Air 06/03/23 10:21 06/03/23 10:26 06/03/23 10:32 Temperature Pulse Rate 64 65 83 Respiratory Rate 13 12 14 Blood Pressure 165/93 H 152/85 H 147/87 H Pulse Oximetry 96 95 95 Oxygen Delivery Method Room Air Room Air Room Air 06/03/23 10:57 06/03/23 11:17 06/03/23 11:30 Temperature Pulse Rate 73 97 H 86 Respiratory Rate 13 14 12 Blood Pressure 145/72 H 164/85 H Pulse Oximetry 95 98 Oxygen Delivery Method Room Air Room Air 06/03/23 11:46 06/03/23 12:00 06/03/23 12:30 Temperature 97.8 F Pulse Rate 94 H 77 86 Respiratory Rate 12 15 13 Blood Pressure 137/60 158/65 H Pulse Oximetry 98 Oxygen Delivery Method Room Air Room Air 06/03/23 12:45 06/03/23 13:00 06/03/23 13:15 Temperature Pulse Rate 83 93 H 70 Respiratory Rate 10 L 12 13 Blood Pressure Pulse Oximetry Oxygen Delivery Method Room Air Room Air Room Air MDM - Psych <Jes Hiceky, DO - Last Filed: 06/14/23 06:57> Lab Data 06/02/23 07:45 06/02/23 07:45 Labs: Lab Results 06/02/23 06/03/23 Range/Units 07:45 07:45 WBC 10.4 (4.5-11.0) X10^3/uL RBC 5.75 (4.5-5.9) X10^6/uL Hgb 17.0 (13.5-17.5) g/dL Hct 49.2 (41-53) % MCV 85.5 (80-100) fL MCH 29.6 (26-34) PG MCHC 34.6 (30-36) % RDW 13.8 (11.6-14.8) % Plt Count 313 (150-400) X10^3/uL Neut % (Auto) 61.5 (50-75) % Lymph % (Auto) 25.7 (25-40) % [place] % (Auto) 8.6 (3-14) % Eos % (Auto) 3.7 (2-4) % Baso % (Auto) 0.5 (0-2) % Neut # (Auto) 6400 (9556-8941) /uL Lymph # (Auto) 2700 (9590-0992) /uL [place] # (Auto) 900 (0-900) /uL Eos # (Auto) 400 (0-450) /uL Baso # (Auto) 100 (0-100) /uL Sodium 138 (137-145) mmol/L Potassium 4.3 (3.4-5.1) mmol/L Chloride 109 H (98-107) mmol/L Carbon Dioxide 23 (22-32) mmol/L BUN 15 (9-20) mg/dL Creatinine 0.86 (0.66-1.25) mg/dL Estimated GFR > 60 (>60) mL/min BUN/Creatinine Ratio 17.4 (6-22) Glucose 102 H (70-100) mg/dL Calcium 9.3 (8.4-10.2) mg/dL Magnesium 2.0 (1.6-2.3) mg/dL Total Bilirubin 0.6 (0.2-1.3) mg/dL AST 51 (17-59) IU/L ALT 32 (<50) IU/L Alkaline Phosphatase 97 (38-126) U/L Total Protein 7.2 (6.3-8.2) g/dL Albumin 4.0 (3.5-5.0) g/dL Globulin 3.2 (1.7-4.1) g/dL Albumin/Globulin Ratio 1.3 (1.0-2.8) TSH 2.85 (0.47-4.68) uIU/mL Urine Color Yellow Urine Appearance Clear Urine pH 6.0 (4.5-8.0) Ur Specific [place] >=1.030 H (1.000-1.035) Urine Protein Negative (Negative) Urine Glucose (UA) Negative (Negative) g/dL Urine Ketones Negative (NEGATIVE) Urine Occult Blood Trace-intact (Negative) Urine Nitrate Negative (Negative) Urine Bilirubin Negative (NEGATIVE) Urine Urobilinogen 1.0 (0.2) E.U./dL Ur Leukocyte Esterase Negative (NEGATIVE) Urine RBC 1-5/hpf (0-5/HPF) Urine WBC None seen (0-5/HPF) Ur Squamous Epith Cells 0-1 /hpf (0-5/HPF) Urine Bacteria None seen (None) Ur Culture Indicated? Cult not indicated Salicylates < 1.0 (<20) mg/dL U Opiates 300ng/mL cut Negative (Negative) Ur Oxycodone Screen Negative (Negative) Urine Methadone Screen Negative (Negative) Acetaminophen < 10 (10-30) ug/mL Ur Barbiturates Screen Negative (Negative) U Tricyclic Antidepress Negative (Negative) Ur Phencyclidine Scrn Negative (Negative) Ur Amphetamines Screen Positive H (Negative) U Methamphetamines Scrn Positive H (Negative) Ur MDMA Scrn (Ecstasy) Negative (Negative) U Benzodiazepines Scrn Positive H (Negative) Urine Cocaine Screen Negative (Negative) U Marijuana (THC) Screen Positive H (Negative) Ethyl Alcohol < 10 ( - 10) mg/dL SARS-CoV-2 (PCR) Negative (Negative) MDM Narrative Medical decision making narrative: 2014 patient more relaxed after Ativan and Benadryl but still awake reports that he does not want his blood drawn again given an opportunity to give me more information he refuses to give me more information. He is not violent but not cooperative. Reports that he has been hospitalized a handful of times but unwilling to say for what and where. Nurse was able to get more information from him he does not want to become violent but he really does not want any blood work done. Sounds as though he has been in intermediate he is had mental health issues before he is had multiple therapist they keep changing he is not able to get anywhere with them. He wish he were . He willingly takes Ativan and Benadryl IM. Sleepy given the opportunity to cooperate for blood work again refuses. Nursing again tried to talk him into being cooperative getting blood work and answering questions. He again refused. Ultimately given IM Haldol which she took willingly. Patient very sonorous sleeping snoring I was able to move his arm he woke pulled arm away. Unwilling to again cooperate. Patient is very high-risk uncooperative unwilling to provide any information not answer if he is suicidal. Staff attempted numerous times to get vitals however patient refused every time. Patient will need a conscious sedation with ketamine. Unfortunately due to staffing and ED volume last night unable to get it done. Also hesitant to add ketamine to Haldol Ativan and Benadryl. However he was arousable quite easily. 1 attempt to get blood by myself and nurse he woke up and pulled his arm away. Signed out to Dr. Mcfarland. <Mason Mcfarland, DO - Last Filed: 06/03/23 17:28> Lab Data Labs: Lab Results 06/02/23 06/03/23 Range/Units 07:45 07:45 WBC 10.4 (4.5-11.0) X10^3/uL RBC 5.75 (4.5-5.9) X10^6/uL Hgb 17.0 (13.5-17.5) g/dL Hct 49.2 (41-53) % MCV 85.5 (80-100) fL MCH 29.6 (26-34) PG MCHC 34.6 (30-36) % RDW 13.8 (11.6-14.8) % Plt Count 313 (150-400) X10^3/uL Neut % (Auto) 61.5 (50-75) % Lymph % (Auto) 25.7 (25-40) % [place] % (Auto) 8.6 (3-14) % Eos % (Auto) 3.7 (2-4) % Baso % (Auto) 0.5 (0-2) % Neut # (Auto) 6400 (1023-4327) /uL Lymph # (Auto) 2700 (5076-1119) /uL [place] # (Auto) 900 (0-900) /uL Eos # (Auto) 400 (0-450) /uL Baso # (Auto) 100 (0-100) /uL Sodium 138 (137-145) mmol/L Potassium 4.3 (3.4-5.1) mmol/L Chloride 109 H (98-107) mmol/L Carbon Dioxide 23 (22-32) mmol/L BUN 15 (9-20) mg/dL Creatinine 0.86 (0.66-1.25) mg/dL Estimated GFR > 60 (>60) mL/min BUN/Creatinine Ratio 17.4 (6-22) Glucose 102 H (70-100) mg/dL Calcium 9.3 (8.4-10.2) mg/dL Magnesium 2.0 (1.6-2.3) mg/dL Total Bilirubin 0.6 (0.2-1.3) mg/dL AST 51 (17-59) IU/L ALT 32 (<50) IU/L Alkaline Phosphatase 97 (38-126) U/L Total Protein 7.2 (6.3-8.2) g/dL Albumin 4.0 (3.5-5.0) g/dL Globulin 3.2 (1.7-4.1) g/dL Albumin/Globulin Ratio 1.3 (1.0-2.8) TSH 2.85 (0.47-4.68) uIU/mL Urine Color Yellow Urine Appearance Clear Urine pH 6.0 (4.5-8.0) Ur Specific [place] >=1.030 H (1.000-1.035) Urine Protein Negative (Negative) Urine Glucose (UA) Negative (Negative) g/dL Urine Ketones Negative (NEGATIVE) Urine Occult Blood Trace-intact (Negative) Urine Nitrate Negative (Negative) Urine Bilirubin Negative (NEGATIVE) Urine Urobilinogen 1.0 (0.2) E.U./dL Ur Leukocyte Esterase Negative (NEGATIVE) Urine RBC 1-5/hpf (0-5/HPF) Urine WBC None seen (0-5/HPF) Ur Squamous Epith Cells 0-1 /hpf (0-5/HPF) Urine Bacteria None seen (None) Ur Culture Indicated? Cult not indicated Salicylates < 1.0 (<20) mg/dL U Opiates 300ng/mL cut Negative (Negative) Ur Oxycodone Screen Negative (Negative) Urine Methadone Screen Negative (Negative) Acetaminophen < 10 (10-30) ug/mL Ur Barbiturates Screen Negative (Negative) U Tricyclic Antidepress Negative (Negative) Ur Phencyclidine Scrn Negative (Negative) Ur Amphetamines Screen Positive H (Negative) U Methamphetamines Scrn Positive H (Negative) Ur MDMA Scrn (Ecstasy) Negative (Negative) U Benzodiazepines Scrn Positive H (Negative) Urine Cocaine Screen Negative (Negative) U Marijuana (THC) Screen Positive H (Negative) Ethyl Alcohol < 10 ( - 10) mg/dL SARS-CoV-2 (PCR) Negative (Negative) ECG Data Interpretation: Sinus tachycardia Ventricular rate 129 Normal axis Normal QTC Occasional PVCs Artifact noted secondary to twitching No ST T wave changes MDM Narrative Medical decision making narrative: 2014 patient more relaxed after Ativan and Benadryl but still awake reports that he does not want his blood drawn again given an opportunity to give me more information he refuses to give me more information. He is not violent but not cooperative. Reports that he has been hospitalized a handful of times but unwilling to say for what and where. Nurse was able to get more information from him he does not want to become violent but he really does not want any blood work done. Sounds as though he has been in intermediate he is had mental health issues before he is had multiple therapist they keep changing he is not able to get anywhere with them. He wish he were . He willingly takes Ativan and Benadryl IM. Sleepy given the opportunity to cooperate for blood work again refuses. Nursing again tried to talk him into being cooperative getting blood work and answering questions. He again refused. Ultimately given IM Haldol which she took willingly. Patient very sonorous sleeping snoring I was able to move his arm he woke pulled arm away. Unwilling to again cooperate. Patient is very high-risk uncooperative unwilling to provide any information not answer if he is suicidal. Staff attempted numerous times to get vitals however patient refused every time. Patient will need a conscious sedation with ketamine. Unfortunately due to staffing and ED volume last night unable to get it done. Also hesitant to add ketamine to Haldol Ativan and Benadryl. However he was arousable quite easily. 1 attempt to get blood by myself and nurse he woke up and pulled his arm away. Signed out to Dr. Mcfarland. Dr mcfarland: Received turned over. Reviewed patient's history and physical exam and workup up to this point. Patient has been calm and not aggressive but certainly has not been cooperative. I did review the [place] paperwork from the police department. I did view a picture from the [employer] page of a gun and a post stating that he wished he could just kill himself. I did not see any specific picture of him pointing a gun to his head. I contacted the police to see if they could locate such pictures. Patient was not willing to participate in any HPI or review of systems. He was not willing to allow us to draw any blood. I do feel that the patient is a danger to himself and potentially others. I do not feel that he has capacity to make these decisions. I informed the patient that we would need to get some blood from him in order to provide medical clearance and he stated that we would need to sedate him for this. He was given 300 mg of ketamine. He was calm with this. He was cooperative with allowing this to give him the injections. He was sedated appropriately in labs and urine and EKG were obtained. Patient is medically cleared. We will contact DCR Dr Mcfarland: Patient has been seen by DCR. He continues to be medically cleared. He was calm but not cooperative until he was told by the DCR that he was going to be detained. He then became very agitated. He flipped the gurney over. He broke monitors and other equipment in the room. The door was closed and locked. The police were called because of his destruction of property. We then had a discussion with the patient. We are prepared to chemically sedate the patient however once the police arrived he did calm down. He stated that he would be calm. He did accept an offer for oral Ativan. He has been calm since then. He does have placement. We will transport patient to mental health facility for further evaluation and treatment. Restraint [id number] <Mason Mcfarland, DO - Last Filed: 06/03/23 17:28> Restraint [id number] Evaluation [id number] #1: Patient Appearance: Disheveled Level of Consciousness: Combative, Inappropriate and Restless Speech Pattern: Clear Mood Description: Angry Ability to Follow Directions: Poor Respirations: Normal respiratory rate Cardiac: Regular Rate Behavior necessitating restraint: Agitated Restraint risks explained to patient: Yes Restraint risks explained to family: No Discharge Plan Departure Patient Disposition: Xfer Psychiatric Hosp Clinical Impression: Suicidal ideation, Methamphetamine use Prescriptions: No Action bupropion HCl [Wellbutrin XL] 150 mg tablet extended release 24 hr 150 mg PO QAM lorazepam 1 mg tablet 1 mg PO DAILY PRN (Reason: Anxiety) zolpidem [Ambien] 5 mg tablet 5 mg PO BEDTIME PRN (Reason: Insomnia) albuterol sulfate 90 mcg/actuation HFA aerosol inhaler 2 puff INHALATION Q6H PRN (Reason: shortness of breath or wheezing) Qty: 6.7 0RF tramadol 50 mg tablet 50 mg PO Q6H PRN (Reason: pain) Qty: 10 0RF Referrals: Miscellaneous,Doctor, MD [Primary Care Provider] -
--- NOTE | 2023-06-02 18:50 | PC.NURSE ---
Pt in room 13 on stretcher. Lock box locked up and monitor removed from room. Pt was patted down by [employer] and no weapons or paraphernalia found on person. Arrives in shorts, ladonna shirt. No shoes, socks, or belongings noted.
[2023-06-02] MEDS: LORazepam 2 MG/ML INJ IM (19:05)
[2023-06-02] MEDS: diphenhydrAMINE 50 MG/ML VIAL IM (19:05)
--- NOTE | 2023-06-02 19:20 | PC.NURSE ---
pt lying on gurney. chest rise and fall is visible. 1:1 observation sitter at doorway.
[2023-06-02 19:34] VITALS: RESP 18
--- NOTE | 2023-06-02 21:16 | PC.NURSE ---
this nurse went into room to speak with patient. patient opened up to me about his life and how he is feeling. patient mentioned he has had a long history of mental health issues. he mentioned having lithium as a child among other medications. He mentioned being given many antipsychotic medication while in intermediate. patient specifically mentioned that he was given possibly 800mg of seroquel and he stopped breathing. mentions that he has been trying to see councilors in the past but they leave and are replaced every few weeks and he never feels like he is getting passed over constantly. He used to take medications to help his depression which sometimes is worse than other times. Patient mentioned he has a female friend that has 2 small children that has helped him a lot since he got out of intermediate. He is in a particular slump right now due to financial problems and his account being over-drafted due to child support, this has caused his female friend financial hardship as they were sharing an account. 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 He is afraid he is going to lose this business due to the [employer] zig[employer] being called on him stef, states he has been living on his boat and the car ferry master will now kick him out since he is not supposed to be living on his boat or running a business out of his boat and he has been doing both. this nurse tried to explain to patient that we are legally required to obtain blood and urine and have a mental health evaluation done by the provider prior to letting him go home. Patient verbalized multiple times that he understands what he have to do but he does not want to do this, he is refusing. He has stated that he does not appreciate being physically touched without consent and he will try his best to not hurt anyone here but sometimes he feels like he might accidentally swing if someone comes at him aggressively.
[2023-06-02] MEDS: HALOPERIDOL 5 MG/ML VIAL 10 MG IM (22:27)
--- NOTE | 2023-06-02 22:44 | PC.NURSE ---
This RN spoke with patient per providers request. Asked again for blood and urine, patient stated he would not be cooperating with it. Stated that I could give him more medication to which patient agreed stating you'll have to drug me till I'm drooling before you can get my blood and that this lit a fire in me to fight. Tried to speak therapeutically to patient and rationalize with him, patient states that provider caused this and that I have the record for the longest suicide watch during his retirement time. Patient reports he posted on social media to see if anyone cared and that those who reported him were out to do me harm. Also states that his life is over and that he ruined the life of a mother of 2 children. That his boat has to be moved in 6 days from its slip. Asked patient several times over the course of the conversation to meet me shelter and to let me have his blood, that this RN would take it and that it would benefit me but he would not comply and I don't want to hurt anyone if we take it by force. Patient medicated per OCT.
[2023-06-02 22:52] VITALS: RESP 16
[2023-06-03] VITALS (42 sets, daily range): BP systolic 119–213; BP diastolic 60–116; PULSE 64–120; RESP 10–96; TEMP 36.6–37; O2SAT 14–99
--- NOTE | 2023-06-03 00:31 | PC.NURSE ---
Addendum entered by Tracee Ashley R.N. 06/03/23 01:05: Asked patient to check his vital signs including BP and HR. Patient said no, when asked if would he tell me why, he shook his head and said no. Charge made aware. Original Note: Patient in room with snoring respirations. Went in with blood draw needle and tubes. Patient woke up and I asked him again for permission to draw his blood and he stated no. Charge nurse made aware of attempts to get blood willingly. Patient not behaving aggressively with this RN or other staff present. Order present for IM ketamine, voiced concerns for administering this medication with patients current level of somnolence.
--- NOTE | 2023-06-03 00:34 | PC.NURSE ---
Current sitter is charting patient safety checks on paper d/t no access to ED charting system. Sitter is Labor and steam tank operator.
--- NOTE | 2023-06-03 05:50 | PC.NURSE ---
SAFETY ENGINEER PRESSURE VESSELS NOTE : Staff have attempted multiple times to obtain blood presures and a urine sample, he has refused each time.
[2023-06-03] MEDS: KETAMINE 500 MG/5 ML INJ 300 MG IM (07:37)
--- NOTE | 2023-06-03 07:47 | PC.NURSE ---
VICE PRESIDENT OF CONTRACTS note pt. lying down receiving ekg.
[2023-06-03 07:57] LABS: Appearance Urine UA CLEAR; Bilirubin Urine UA NEGATIVE (NEGATIVE); Color Urine UA YELLOW; Glucose Urine UA NEGATIVE (Negative); Ketones Urine UA NEGATIVE (NEGATIVE); Leukocyte Esterase Urine UA NEGATIVE (NEGATIVE); Nitrite Urine UA NEGATIVE (Negative); Occult Blood Urine UA TRACE-INTACT (Negative); Protein Urine UA NEGATIVE (Negative); Specific Gravity Urine UA >=1.030 (1.000-1.035)
[2023-06-03 07:58] LABS: Ur Creatinine Normal (Normal); Ur Specific Gravity Normal (Normal); Urine pH Normal (Normal)
[2023-06-03 08:00] LABS: UR Morphine/Opiate cutoff 300 Negative (Negative); Urine Amphetamines Positive (Negative); Urine Barbiturates Negative (Negative); Urine Benzodiazepines Positive (Negative); Urine Cocaine Negative (Negative); Urine MDMA Negative (Negative); Urine Methadone Negative (Negative); Urine Methamphetamines Positive (Negative); Urine Oxycodone Negative (Negative); Urine Phencyclidine Negative (Negative); Urine Tetrahydrocannabinol Positive (Negative); Urine Tricyclic Antidepressant Negative (Negative)
[2023-06-03 08:03] LABS: Bacteria Urine None Seen; Culture Indicated Urine Cult Not Indicated; RBC Urine 1-5/HPF (0-5/HPF); Squamous Epithelial Cell Urine 0-1 /HPF (0-5/HPF); WBC Urine None Seen (0-5/HPF)
--- NOTE | 2023-06-03 08:05 | PC.NURSE ---
Patient was given IM sedation (see MAR) and is now awake, able to move all 4 extremities, has managed his own airway remaining above 95% o2 on room air. Patient states he doesnt know where he is at and he is scared. I reoriented him to the ER at [facility] and encouraged him that he is safe, we are monitoring him here. Patient expressed understanding.
[2023-06-03 08:08] LABS: Add Manual Diff / Slide Review NO; Basophils Absolute Auto 100 /uL (0-100); Basophils Percent Auto 0.5 % (0-2); Eosinophils Absolute Auto 400 /uL (0-450); Eosinophils Percent Auto 3.7 % (2-4); Hematocrit 49.2 % (41-53); Lymphocytes Absolute Auto 2700 /uL (1100-4500); Lymphocytes Percent Auto 25.7 % (25-40); Mean Corpuscular HGB Conc 34.6 % (30-36); Mean Corpuscular Hemoglobin 29.6 PG (26-34); Mean Corpuscular Volume 85.5 fL (80-100); Monocytes Absolute Auto 900 /uL (0-900); Monocytes Percent Auto 8.6 % (3-14); Neutrophils Absolute Auto 6400 /uL (1500-7000); Neutrophils Percent Auto 61.5 % (50-75); Platelet Count 313 X10^3/uL (150-400); Red Blood Cell Count 5.75 X10^6/uL (4.5-5.9); Red Cell Distribution Width 13.8 % (11.6-14.8); White Blood Cell Count 10.4 X10^3/uL (4.5-11.0)
[2023-06-03 08:10] LABS: Acetaminophen < 10 ug/mL (10-30); COVID19 -Nasal RAPID Negative (Negative); Salicylate < 1.0 mg/dL (<20)
[2023-06-03 08:10] LABS: Alanine Aminotransferase 32 IU/L (<50); Albumin Globulin Ratio 1.3 (1.0-2.8); Alkaline Phosphatase 97 U/L (38-126); Aspartate Aminotransferase 51 IU/L (17-59); BUN Creatinine Ratio 17.4 (6-22); Bilirubin Total 0.6 mg/dL (0.2-1.3); Blood Urea Nitrogen 15 mg/dL (9-20); Calcium 9.3 mg/dL (8.4-10.2); Carbon Dioxide 23 mmol/L (22-32); Chloride 109 mmol/L (98-107); Estimated Glomerular Filt Rate > 60 mL/min (>60); Ethanol (ETOH) < 10 mg/dL; Globulin 3.2 g/dL (1.7-4.1); Glucose 102 mg/dL (70-100); HEMOLYSIS 19 (0-50); Potassium 4.3 mmol/L (3.4-5.1); Sodium 138 mmol/L (137-145); Total Protein 7.2 g/dL (6.3-8.2)
[2023-06-03] MEDS: ONDANSETRON 4 MG ODT SL (08:10)
--- NOTE | 2023-06-03 08:20 | PC.NURSE ---
Patient expressing concern that something is not right. Continuing to encourage patient that his symptoms are expected and he is safe in the ER.
--- NOTE | 2023-06-03 08:23 | PC.NURSE ---
Patient is confused about situation and ended up spitting out his zofran odt onto the floor. Pt states he hardik feels nauseous but also does not. No further concerns at this time.
--- NOTE | 2023-06-03 08:42 | PC.NURSE ---
Patient is still confused and states he doesnt know what happened. Something isnt right.. Pt encouraged to try and rest more. Pt laying on his left side, continuous vital monitoring.
[2023-06-03 08:45] LABS: TSH w/ Reflex to FT4 2.85 uIU/mL (0.47-4.68)
--- NOTE | 2023-06-03 11:19 | PC.NURSE ---
Pt states he still feels real foggy in his head and wants to sleep more before talking to DCR.
--- NOTE | 2023-06-03 11:57 | PC.NURSE ---
SAFETY PERSON: Note Pt woke up and wanted his BP cuff to be taken off, BP cuff was taken off. Pt stated that he feels like he has been his by a truck and that he can not see strait. Social work then entered the room and asked a few questions.
--- NOTE | 2023-06-03 12:35 | PC.NURSE ---
spoke w/ intake at [facility] as they are considering pt.
--- NOTE | 2023-06-03 13:38 | PC.NURSE ---
WOODEN SHADE HARDWARE INSTALLER Note: Pt ripped leads off because they were getting sweaty, DCR is currently in the room.
--- NOTE | 2023-06-03 13:54 | PC.NURSE ---
Patient was told he is being detained from the DCR. Nursing staff was not made aware of this decision before he was told. Monitoring equipment was in the room due to patient having been sedated with ketamine. Pt has thrown the monitor multiple times against the door, and flipped the bed over to block the door. -- has been called. Patient pacing around the room cursing.
--- NOTE | 2023-06-03 13:57 | PC.NURSE ---
HALL CLERK Note: DCR was in the room going over all the options on what would be best for him. He did not like any of the options and started to become agitated. Social work was concerned that he was going to be a flight risk so the charger tester was informed. The Charge informed the pt that she was going to be closing the door. Once the door was closed that is when he became aggressive and started to break the equipment that was in the room throwing it against the doors and hahn. [employer] is on sight.
[2023-06-03] MEDS: LORazepam 0.5 MG TABLET 1 MG PO ×2 (14:16→17:22)
--- NOTE | 2023-06-03 14:24 | PC.NURSE ---
At approx 1350 I was notified that pt was going to be KLAUDIA'd. I went to room to remove unnecessary things in the room as pt had been on the monitor r/t ketamine administration. Pt was pacing on far side of room with aggressive stance. I asked if I could get him some medication or anything to assist and he told me to 'fuck off' multiple times. Pt's pacing became faster, he balled his fists and again told me to 'fuck off'. I decided to close secure door for my safety and the safety of other pt's in the department. I went to alert Dr. Mcfarland and heard a loud crash. I watched video monitor of room and watched pt molded goods spot picker everything that was loose in room one at a time and deliberatly throw them against the door. He then flipped over the stretcher against the door and continued to pace. I then called Manuel SANTANA for assistance. Upon arrival, [employer] was updated. Plan was made to open door with [employer] taking the lead. Dr. Mcfarland and officers went into room. Everything was removed from room, mattress was placed in room. Pt stated he would be cooperative and refused IM medication but accepted po medication. No injury to staff or patients.
--- NOTE | 2023-06-03 15:45 | PC.NURSE ---
Patient was laying down on the mattress on the floor away from the door. I knocked on the door, patient made eye contact and I asked him to stay where he was, and that we needed to talk to him. Patient agreeable. I unlocked the door to allow Mirella WAGNER to talk with patient. Mirella asked patient if he could manage his emotions and asked if he would not be aggressive towards the ambulance drivers or staff at the accepting facility. Pt responds Yes, I can manage. Patient was served KLAUDIA halfway paperwork, and then is agreeable to putting the paperwork with his other belongings. Patient remained still on the mattress, and the door was closed for seclusion. He was asking for food and apple juice which will be supplied.
--- NOTE | 2023-06-03 16:14 | CM.SWNOTE ---
ED DEBURRING MACHINE OPERATOR Note Patient is 52 y/o male who arrives via [employer] due to concern for patient posting on Facebook a picture of a gun making SI statements. [employer] transports patient to for KLAUDIA. DEBURRING MACHINE OPERATOR reviews EMR and patient was not cooperative for lab work and chemical restraint was required. Patient was medically clear this morning and DCR was dispatched prior to DEBURRING MACHINE OPERATOR's arrival. DEBURRING MACHINE OPERATOR attempts to meet with patient when he wakes up. Patient presents as A/Ox4, he endorses vision difficulty and states he is not in space to talk to anyone. Patient endorses he does not recall what occurred last night, patient denies SI and HI. DEBURRING MACHINE OPERATOR reviews patient's Facebook post with security who states they have screenshot a photo of the post with gun and SI statements, DEBURRING MACHINE OPERATOR faxes these screen shots to DCR. KRISTY Vu is assigned, DEBURRING MACHINE OPERATOR calls Mirella and endorses that patient is starting to wake up. Mirella states she will arrive in person to assess patient. KRISTY Vu assesses patient and when patient is informed he is going to be detained, DEBURRING MACHINE OPERATOR informs staff and charge nurse that there is concern for patient becoming a flight risk. DEBURRING MACHINE OPERATOR discusses patient in DEBURRING MACHINE OPERATOR's office and is informed that patient is accepted at [facility] for KLAUDIA placement, accepting provider is DAMIEN Hernandez, intake is [facility] and patient can arrive after 1830. Upon DEBURRING MACHINE OPERATOR's return to ED, DEBURRING MACHINE OPERATOR is informed that patient was destructive with medical equipment and belongings in room and caused some damage. Patient's door is shut for seclusion, [employer] is called and upon their arrival everything is removed from patient's room, patient is given Ativan by mouth. This DEBURRING MACHINE OPERATOR was not present for incident, see clinic charge nurse note. DEBURRING MACHINE OPERATOR informs DCR of patient's behavior and DCR informs Genoveva at [facility]. BLS is set up for transport to arrive at 1730. KRISTY Vu serves patient with detainment paperwork with RN present, paperwork is placed with patient's belongings. Plan: patient to transfer to [facility] for KLAUDIA placement this evening via BLS. SAYDA Glynn
--- NOTE | 2023-06-03 16:26 | PC.NURSE ---
Patient was cooperative to stay in his bed while I delivered food and beverages to him. Patient was given a chocolate granola bar, 2x cheese sticks, saltines, 2x egg salad sandwiches, apple juice, and water. For safety, this food was all provided with paper cups only.
--- NOTE | 2023-06-03 17:30 | PC.NURSE ---
Patient was agreeable to receiving more PO ativan before transport. I also told him we wanted to manage his expectations for the ambulance transport, informing him that he would need restraints on his arms and legs for the trip. Patient nodded his head yes, that he is aware and willing. Seclusion restraint was removed with the door unlocked, cracked open at this time.
--- NOTE | 2023-06-03 17:55 | PC.NURSE ---
[facility] Arrived and patient was informed. He denied needing to use the bathroom or any other needs at this time. Patient calm and cooperatively stood and then sat down on the gurney. 4 point restraints were applied to patient by ambulance transport and patient remained calm and cooperative. Report given to Nubia RICE. Patient's belongings including wallet were given to EMT's.
== END 2023-06-03 18:00 ==
PROVIDERS: Emergency Medicine; Emergency Provider Emergency Medicine
DX: R45.851 Suicidal ideations (principal); F15.10 Other stimulant abuse, uncomplicated; Z20.822 Contact with and (suspected) exposure to COVID-19
CPT/HCPCS: 36415; 80053; 80305; 80320; 80329; 81001; 83735; 84443; 85025; 87635; 93005; 96372; 99285; C9803; G0480; J1200; J1630; J2060